=== PATIENT | female | born 1985 | race Caucasian/White ===

== ENCOUNTER 2017-01-24 18:29 | Emergency (ER) | payer OTHER | END 2017-01-24 19:00 | disposition home or self-care (01) | LOC: EDBD 18:29 → ER1 18:29 | DX: L02.211 Cutaneous abscess of abdominal wall (principal); L03.311 Cellulitis of abdominal wall; K21.9 Gastro-esophageal reflux disease without esophagitis; F17.210 Nicotine dependence, cigarettes, uncomplicated; Z79.899 Other long term (current) drug therapy | CPT/HCPCS: 99282 ==

== ENCOUNTER 2020-11-21 21:31 | Emergency (ER) | payer OTHER ==
[~2020-11-21 21:31] MED LIST: FLONASE ALLER15.8 ML; IBUPROFEN600 MG PO; NORCO 5-325 TA1 EACH PO; OMEPRAZOLE20 M1 PO; PHENERGAN 12.12.5 M1 PO; ZANTAC150 MG PO; ZYRTEC10 MG PO
[2020-11-22] MEDS ORDERED: IBUPROFEN800 MG PO (00:14)
== END 2020-11-22 00:55 | disposition home or self-care (01) ==
LOC: ER1 21:31
DX: M79.672 Pain in left foot (principal)
CPT/HCPCS: 73610; 73630; 96372; 99283; J1885